=== PATIENT | female | born 1985 | race Caucasian/White ===

== ENCOUNTER → 2018-07-11 11:59 | Outpatient (CLI) | payer OTHER, SELFPAY ==
--- NOTE | 2018-07-11 12:01 | DI.RAD.S_ITS ---
PROCEDURE: XR FOOT LT MIN 3V INDICATIONS: Distal Fifth metatarsal pain TECHNIQUE: 3 views of the foot were acquired. COMPARISON: None. FINDINGS: Bones: There is fracture involving medial aspect of fifth proximal phalangeal base with fracture line extending to fifth MTP joint and medially displaced fracture fragment. No other fracture or dislocation. No suspicious bony lesions. Soft tissues: No tibiotalar joint effusion. Achilles tendon appears normal. IMPRESSION: Displaced intra-articular fracture of fifth proximal phalangeal base as above. Dictated by: Cachorro Kirby M.D. on 07/12/2018 at 11:06 Approved by: Cachorro Kirby M.D. on 07/12/2018 at 11:07
== END ==
PROVIDERS: Visit Provider Physician Assistant
DX: S92.512A Displaced fracture of proximal phalanx of left lesser toe(s), initial encounter for closed fracture (principal); M79.672 Pain in left foot
CPT/HCPCS: 73630

== ENCOUNTER → 2018-08-08 13:19 | Outpatient (CLI) | payer OTHER, SELFPAY | PROVIDERS: Visit Provider Physician Assistant | DX: J02.9 Acute pharyngitis, unspecified (principal) | CPT/HCPCS: 87070 ==

== ENCOUNTER 2018-08-14 08:44 | Day surgery (SDC) | payer OTHER, SELFPAY ==
[2018-08-12 15:51] VITALS: BMI 33.2
[2018-08-14] VITALS (7 sets, daily range): BP systolic 88–128; BP diastolic 48–83; PULSE 48–83; RESP 10–16; TEMP 36.3–36.6; O2SAT 94–100; BMI 33.2
[2018-08-14] MEDS: LACTATED RINGERS 1,000 ML 42 ML IV (09:30)
--- NOTE | 2018-08-14 10:53 | PM.PREOP ---
Pre-operative Note Interval Note History & Physical reviewed/Exam performed by Physician: Yes Changes to H&P: No
--- NOTE | 2018-08-14 10:56 | P.OP_ITS ---
Operative Date/Time/Diagnoses Date of procedure: 08/14/18 Time of procedure: 10:55 Pre-op diagnosis: Left fifth toe fracture Post-op diagnosis: same Procedure & Clinicians Procedure: Left fifth toe joint fracture fragment excision, soft tissue stabilization Same procedure as scheduled: Yes Indications: Ongoing pain left fifth toe fracture, conservative efforts failed to alleviate pain. Surgeon: Suzan Morin Click Yes if Unassisted: Yes Anesthesia Type: General Operative Notes Closure Type: primary Specimen(s): none sent Implants & Drains: Ticron 2-0 suture Estimated Blood Loss (mL): 20 Blood products transfused: none Procedure in detail: The patient was brought to the operating room and placed on the operating table in the supine position. The tourniquet was placed about the left ankle. Well padded appropriately aligned. After induction of general anesthesia the left foot and ankle were prepped and draped in the usual aseptic manner. The tourniquet was inflated. After check of anesthesia, an incision was made over the dorsal 5th metatarsal phalangeal joint of the left foot. The incision was deepened through subcutaneous tissues, being careful to identify and retract all vital neural and vascular structures. All bleeders were cauterized and ligated as necessary. Immediately on the lateral base of the 5th proximal phalanx the fracture was spotted and appeared to be elevated and slightly proximal to the main portion of the bone. There was some attempted healing with some scar tissue present. It was easily movable however. This was removed and it was shown that underlying this there was still a portion of the bone that had not fractured off but it was almost like a small spur at that point. So to make this clean for less trauma to the joint, that area was resected and smoothed. It appeared that the 5th metatarsal head did not show any significant trauma or degenerative changes to it. The area was irrigated with copious amounts of normal sterile saline. The remaining ligamentous and soft tissue structures in that area were able to be gently reapproximated and 2 Ticron sutures were placed. This was very low profile and did not appear to get in the way of manipulation of the toe joint. The tourniquet was deflated, prompt hyperemic response was seen to the foot. Subcutaneous closure was performed using Vicryl and skin closure performed using 4-0 nylon. The area was dressed with a lightly compressive sterile dressing including a nonadherent dressing, 4x4s, conform and Coban. She was placed in stockinette and transferred to the PACU with vital signs stable and vascular status intact. Boot was placed on the foot. Complications: none Condition: stable Disposition: PACU Plan for aftercare: Following a period of postoperative monitoring, the patient be discharged home on written and oral postoperative instructions including keeping the dressing dry and intact, avoiding significant ambulation on the foot , icing and elevating the foot when seated home. DVT prevention techniques have been reviewed. For the 1st postoperative visit the dressing will be changed and possible removal of sutures the 1st to 2nd weeks.
--- NOTE | 2018-08-14 11:18 | SUR.OPER ---
Supine on padded OR bed, head on pillow, arms secured on padded arm boards at <90 degrees abduction, legs uncrossed, safety belt at thigh, tape over blanket over non operative lower leg, operative leg prepped and draped free.
[2018-08-14] MEDS: CEFAZOLIN 1 GM VIAL 2 GM IV ×2 (11:24→11:29)
[2018-08-14] MEDS: BUPIVACAINE 0.5% (PF) VIAL 30 ML INJ (11:26)
--- NOTE | 2018-08-14 12:25 | SUR.PHASEII ---
[id number] care from Steven RN, [place], pts called and at bedside, dressing to l foot c/d/i and elevated with ice behind knee.
== END 2018-08-14 12:55 ==
PROVIDERS: Visit Provider Podiatrist
PROC: (CPT 26535; principal; 2018-08-14 10:30)
DX: S92.512A Displaced fracture of proximal phalanx of left lesser toe(s), initial encounter for closed fracture (principal)
CPT/HCPCS: 28525; J0690; J1100; J1885; J2250; J2405; J2704; J3010